=== PATIENT | male | born 1995 | race Caucasian/White ===

== ENCOUNTER 2020-05-11 12:44 | Emergency (ER) | payer OTHER, SELFPAY ==
[2020-05-11 12:46] VITALS: BP 145/76; PULSE 83; RESP 14; TEMP 37.3; O2SAT 99; BMI 27.4
--- NOTE | 2020-05-11 12:56 | RAD_ITS ---
STUDY: X-RAY - LEFT SHOULDER REASON FOR EXAM: Left shoulder pain beginning yesterday and limited range of motion, no specific injury. TECHNIQUE: 4 view(s) of the shoulder. COMPARISON: None. FINDINGS: Normal glenohumeral articulation. Normal acromioclavicular joint. Normal acromion. Normal humeral head and visualized proximal humerus. The soft tissue structures are unremarkable. Normal visualized pulmonary apex. RAD/Shoulder min 2 Views IMPRESSION: Normal x-ray examination of the left shoulder. Electronically Signed: Bhavesh Avalos MD at 13:19 EDT Tel , Service support ,
--- NOTE | 2020-05-11 13:05 | ED.VISSUMM ---
- ER Visit Summary Date of Service: 05/11/20 Chief Complaint: Left shoulder pain History of Present Illness: The patient is a 24 M with no primary care physician. He is right-hand dominant. 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 He reports that this week he has began working 12 hours instead of his usual 8 hours. Ports he has pain in his left shoulder that began yesterday. It is a dull constant pain that sharp with abduction. 7 on 10 at worst and 3-10 currently. He has not taken anything for pain. He denies any trauma. No fall or MVA. Review of systems: General: No fever, chills, cold sweats. Cardiovascular: No chest pain, palpitations. Respiratory: No cough, shortness of breath, dyspnea on exertion. Gastrointestinal: No abdominal pain, nausea, vomiting, diarrhea, melena, or hematochezia. Genitourinary: No dysuria, frequency, hematuria. Skin: No rash. Neuro: No headache, numbness, weakness. Physical Examination: Vitals: Stable. Afebrile. General: Well-nourished and well-developed. Head: Normocephalic atraumatic. Neck: Supple, no lymphadenopathy. No JVD. Nontender. Cardiovascular: Regular rate and rhythm. No murmurs. Respiratory: No respiratory distress. Clear to auscultation bilaterally. Abdominal: Soft, nontender, nondistended, normal bowel sounds. No guarding, rebound, or peritoneal signs. Back: Nontender. Extremities: Mild tenderness to palpation in the proximal portion of his central deltoid on the left. This is approximately 3 cm in diameter. He has pain with abduction above 90 degrees. There is no pain with external rotation. He has normal strength. There is no overlying erythema or warmth to suggest a septic joint. He has a 2+ radial pulse. Normal sensation light touch.. Skin: Normal color, no rash. Neurologic: Alert and oriented ?3. Cranial nerves II through XII are intact. Normal strength and sensation. Psych: Normal affect. Test Results: Left shoulder x-ray shows no acute disease. Emergency Department Course and Treatment: Patient was treated with naproxen. He is resting comfortably. Treatment Plan: Patient will be given a note for work for light duty. He is instructed to take naproxen. Follow-up with [facility] in 1 week for another exam. Return to the emergency department for any worsening symptoms. Disposition: To home in improved and stable condition. Impression: 1. Left shoulder strain. This note was generated with [employer] dictation software. It may contain incorrect words, spelling, and punctuation that were not noted in review of the chart prior to signing ED Disposition - Plan for ED Patient: Instructions: ED Shoulder Pain Uncertain Cause Referrals: [facility] [GROUP OF PHYSICIANS] - 1 Week
[2020-05-11] MEDS: Naproxen 500 MG Tablet PO (13:16)
[2020-05-11 14:09] VITALS: RESP 16
--- NOTE | 2020-05-11 14:10 | ED.RN ---
REVIEWED D/C INSTRUCTIONS, FOLLOW UP CARE, AND S/S THAT WOULD WARRANT A RETURN TO THE ED WITH PT. PT VERBALIZED AN UNDERSTANDING AND DENIES FURTHER QUESTIONS FOR THIS RN. PT AMBULATED OUT OF ED, GAIT STEADY.
== END 2020-05-11 14:11 | disposition home or self-care (01) ==
LOC: ED 13:15
PROVIDERS: Emergency Provider Emergency Medicine; PCP Family Medicine
DX: S46.912A Strain of unspecified muscle, fascia and tendon at shoulder and upper arm level, left arm, initial encounter (principal); X50.9XXA Other and unspecified overexertion or strenuous movements or postures, initial encounter; Y93.9 Activity, unspecified; Y92.9 Unspecified place or not applicable; Y99.0 Civilian activity done for income or pay
CPT/HCPCS: 73030; 99283